=== PATIENT | male | born 1965 | race Caucasian/White ===

== ENCOUNTER 2017-10-02 14:05 | Emergency (ER) | payer OTHER ==
[~2017-10-02] VITALS: Ht 170.2 cm; Wt 96.7 kg
[2017-10-02 16:27] LABS: BASOPHIL % 0.2 % (0-2); PLATELET COUNT 277 x10^3mcL (130-400); RED CELL DISTRIBUTION WIDTH 12.1 % (11.5-14.5)
[2017-10-02 16:43] LABS: CALCIUM 8.6 mg/dL (8.5-10.1); CARBON DIOXIDE 30.1 mmol/L (21-32); CHLORIDE SERUM 100 mmol/L (98-107); CREATININE SERUM 0.9 mg/dL (0.7-1.3); GFR1 > 60 mL/min; GLUCOSE SERUM 126 mg/dL (74-106); POTASSIUM SERUM 3.1 mmol/L (3.5-5.1); SODIUM SERUM 140 mmol/L (136-145)
[2017-10-02 16:48] LABS: ALBUMIN 3.9 g/dL (3.4-5.0); ALKALINE PHOSPHATASE 131 U/L (46-116); ALT/SGPT 63 U/L (16-63); AMYLASE 31 U/L (25-115); AST/SGOT 29 U/L (15-37); BILIRUBIN TOTAL 0.7 mg/dL (0.20-1.00); HDL CHOLESTEROL 36 mg/dL (40-60); LIPASE 77 IU/L (73-393); MAGNESIUM 2.1 mg/dL (1.8-2.4); T4(THYROXINE) 8.3 ug/dL (4.7-13.3)
[2017-10-02 16:49] LABS: CHOLESTEROL 202 mg/dL (<200)
[2017-10-02 17:36] LABS: microscopic required? NO
[2017-10-02 17:41] LABS: urine erythrocyte NEGATIVE (NEGATIVE)
[2017-10-02 17:48] LABS: AMPHETAMINE QUAL UR NONE DETECTED (NEG <=1000)
[2017-10-02 19:13] VITALS: BP 138/91
== END 2017-10-02 19:27 | disposition home or self-care (01) ==
LOC: ED 14:05
PROVIDERS: Emergency Medicine
DX: I10 Essential (primary) hypertension (principal); E87.6 Hypokalemia; I44.0 Atrioventricular block, first degree
CPT/HCPCS: 82962; 83880; J1940; J2405; J3490; J8597